=== PATIENT | male | born 1950 | race African-American/Black ===

== ENCOUNTER 2016-09-16 11:36 | Emergency (ER) | payer SELFPAY ==
[~2016-09-16] VITALS: Ht 180.3 cm; Wt 72.6 kg
[2016-09-16] MEDS ORDERED: Morphine Sulfate 4mg/ml Inj IVP ONE (12:15)
--- NOTE | 2016-09-16 12:49 | Diagnostic Imaging Report ---
Indications: Fall, right knee injury, pain and swelling Technique: 3 views right knee Findings: Comparison: None There is a comminuted fracture of the proximal aspect of the tibia with 3 main and one or more smaller fracture fragments.. The main lateral proximal fragment demonstrates complete bone width lateral displacement relative to the distal fragment, complete dislocation from the lateral femoral condyle, and articulates with the proximal fibula. The main medial proximal fragment demonstrates partial bone width medial displacement relative to the distal fragment and continues to articulate with the medial femoral condyle. The fracture cleft between lateral and medial proximal fragments measures up to 15 mm in width. The suprapatellar bursa is markedly distended and increased attenuation of fat fluid level. Scattered arterial mural calcifications are present. IMPRESSION: Comminuted, displaced fracture of the proximal tibia, intra-articular, with partial dislocation of the knee joint Large suprapatellar lipohemarthrosis Arteriosclerosis
[2016-09-16 13:16] LABS: MEAN CORPUSCULAR HEMOGLOBIN 33.9 PG (27.0-31.0); MEAN CORPUSCULAR HGB CONC 34.8 G/DL (32.0-36.0); MEAN CORPUSCULAR VOLUME 97 FL (80-99); MEAN PLATELET VOLUME 6.4 FL (6.5-10.1); PLATELET COUNT 382 K/UL (150-450); RED CELL DISTRIBUTION WIDTH 11.3 % (11.6-14.8); WHITE BLOOD COUNT 18.7 K/UL (4.8-10.8)
[2016-09-16 13:27] LABS: ALANINE AMINOTRANSFERASE 35 U/L (3-41); ALBUMIN/GLOBULIN RATIO 0.5 (1.0-2.7); ANION GAP 18 (5-15); ASPARTATE AMINO TRANSFERASE 88 U/L (5-40); CALCIUM 9.8 mg/dL (8.6-10.2); CARBON DIOXIDE 24 mEQ/L (20-30); CHLORIDE 92 mEQ/L (98-107); CREATININE 1.1 mg/dL (0.7-1.2); GLOMERULAR FILTRATION RATE > 60 mL/min (>60); HEMOLYSIS 9; POTASSIUM 4.5 mEQ/L (3.4-4.9); SODIUM 134 mEQ/L (135-145); TOTAL PROTEIN 9.7 g/dL (6.6-8.7)
[2016-09-16 13:28] LABS: TROPONIN I < 0.30 ng/mL (<=0.30)
[2016-09-16 13:37] LABS: CKMB 7.9 ng/mL (< 6.7)
[2016-09-16 13:47] LABS: BILIRUBIN,DIRECT 0.4 mg/dL (0.1-0.3)
[2016-09-16 13:49] LABS: ANISOCYTOSIS 1+; BAND NEUTROPHILS % (MANUAL) 0 % (0-8); BASOPHILS % (MANUAL) 0 % (0-2); EOSINOPHILS % (MANUAL) 0 % (0-3); LYMPHOCYTES % (MANUAL) 9 % (20-45); NEUTROPHILS % (MANUAL) 79 % (45-75); PLATELET ESTIMATE ADEQUATE; PLATELET MORPHOLOGY NORMAL; TOTAL CELLS COUNTED 100
--- NOTE | 2016-09-16 14:40 | Diagnostic Imaging Report ---
APPROVED REPORT CPT Code: 13049 Present Symptoms Comments: Right leg swelling and pain RIGHT LEG: Venous imaging reveals a patent deep venous system. There is no evidence of thrombus within the femoral, popliteal or tibial segments. The greater saphenous vein is also within normal limits. Doppler indicates normal spontaneous flow within these segments. Incidental findings: Cystic, fluid filled structure noted around the anterior right knee area, measuring (6.6cm x 2.2 cm), and also mid calf area, measuring, (3.1 cm x 1.5cm).
--- NOTE | 2016-09-16 16:35 | Emergency Room Report ---
History of Present Illness General Chief Complaint: Lower Extremity Injury Source: Patient, EMS Present Illness HPI 66-year-old male presents ED complaining of right knee pain. States he had a mechanical trip and fall a few days ago down the stairs. Denies hitting his head or LOC. Complains of pain to his right knee. Unable to bear weight. 10 out of 10. Throbbing. No swelling right leg. No other aggravating or relieving factors. Denies any other associated symptoms Allergies: Coded Allergies: No Known Allergies (Unverified , 09/16/16) Patient History Past Medical History: none Past Surgical History: none Pertinent Family History: none Social History: Denies: alcohol use, drug use, smoking Immunizations: UTD Reviewed Nursing Documentation: PMH: Agreed, PSxH: Agreed Nursing Documentation-PMH Past Medical History: No Stated History Review of Systems All Other Systems: negative except mentioned in HPI Physical Exam Vital Signs Date Time Temp Pulse Resp B/P Pulse Ox O2 Delivery O2 Flow Rate FiO2 09/16/16 11:31 99.0 120 16 160/104 100 Room Air Sp02 EP Interpretation: reviewed, normal General Appearance: alert, GCS 15, non-toxic, mild distress Head: normocephalic Eyes: bilateral eye PERRL, bilateral eye normal inspection ENT: normal ENT inspection Neck: normal inspection Respiratory: chest non-tender, lungs clear, normal breath sounds, speaking full sentences Cardiovascular #1: regular rate, rhythm, no edema Gastrointestinal: normal bowel sounds, non tender, soft, non-distended, no guarding, no rebound Rectal: deferred Genitourinary: no CVA tenderness Musculoskeletal: swelling - R knee to Rtibfib, tender - R knee Neurologic: alert, oriented x3, responsive, motor strength/tone normal, sensory intact, speech normal Psychiatric: normal inspection Skin: normal inspection Lymphatic: normal inspection Procedures Splinting Splinting : Consent: Verbal Hand-Made Type: plaster Splint: posterior long Pre-Proc Neuro Vasc Exam: normal Post-Proc Neuro Vasc Exam: normal Patient Tolerated: Well Complications: None Medical Decision Making Diagnostic Impression: Primary Impression: Tibia fracture Qualified Codes: S82.101A - Unspecified fracture of upper end of right tibia, initial encounter for closed fracture Additional Impression: Fall down stairs Qualified Codes: W10.8XXA - Fall (on) (from) other stairs and steps, initial encounter ER Course Hospital Course 66-year-old male presents ED complaining of right knee pain and swelling status post tripping fall downstairs Differential diagnoses include: fracture, dislocation, contusion, DVT Clinical course Patient placed on stretcher. After initial history and physical I ordered labs , pain medication and x-rays of right knee, Doppler study Labs reviewed-no leukocytosis noted, electrolytes okay, hemoglobin/hematocrit okay, CK > 2000 Doppler US -no DVT Xray shows comminuated fracture of proximal tibia, intraarticular, with partial dislocation of knee joint I discussed case with orthopedics here. Please that patient requires higher level of care with admission to trauma service. Patient placed in posterior splint. Given IV fluids. Patient will be transferred at [facility]. I feel this is a highly complex case requiring extensive working including EKG/Rhythm strip, Xray/CT/US, Blood/urine lab work, repeat exams while in ED, and administration of strong opiates/narcotics for pain control, admission to hospital or close patient follow up. Diagnosis - tibia fracture, fall down stairs Transferred in serious condition Labs Test 09/16/16 12:41 White Blood Count 18.7 K/UL (4.8-10.8) Red Blood Count 3.30 M/UL (4.70-6.10) Hemoglobin 11.2 G/DL (14.2-18.0) Hematocrit 32.2 % (42.0-52.0) Mean Corpuscular Volume 97 FL (80-99) Mean Corpuscular Hemoglobin 33.9 PG (27.0-31.0) Mean Corpuscular Hemoglobin Concent 34.8 G/DL (32.0-36.0) Red Cell Distribution Width 11.3 % (11.6-14.8) Platelet Count 382 K/UL (150-450) Mean Platelet Volume 6.4 FL (6.5-10.1) Neutrophils (%) (Auto) % (45.0-75.0) Lymphocytes (%) (Auto) % (20.0-45.0) Monocytes (%) (Auto) % (1.0-10.0) Eosinophils (%) (Auto) % (0.0-3.0) Basophils (%) (Auto) % (0.0-2.0) Differential Total Cells Counted 100 Neutrophils % (Manual) 79 % (45-75) Lymphocytes % (Manual) 9 % (20-45) Monocytes % (Manual) 12 % (1-10) Eosinophils % (Manual) 0 % (0-3) Basophils % (Manual) 0 % (0-2) Band Neutrophils 0 % (0-8) Platelet Estimate Adequate Platelet Morphology Normal Anisocytosis 1+ Sodium Level 134 mEQ/L (135-145) Potassium Level 4.5 mEQ/L (3.4-4.9) Chloride Level 92 mEQ/L (98-107) Carbon Dioxide Level 24 mEQ/L (20-30) Anion Gap 18 (5-15) Blood Urea Nitrogen 39 mg/dL (7-23) Creatinine 1.1 mg/dL (0.7-1.2) Estimat Glomerular Filtration Rate > 60 mL/min (>60) Glucose Level 123 mg/dL (74-106) Calcium Level 9.8 mg/dL (8.6-10.2) Total Bilirubin 1.2 mg/dL (0.0-1.2) Direct Bilirubin 0.4 mg/dL (0.1-0.3) Aspartate Amino Transf (AST/SGOT) 88 U/L (5-40) Alanine Aminotransferase (ALT/SGPT) 35 U/L (3-41) Alkaline Phosphatase 74 U/L (40-129) Total Creatine Kinase 2063 U/L (38-174) Creatine Kinase MB 7.9 ng/mL (< 6.7) Creatine Kinase MB Relative Index 0.3 Troponin I < 0.30 ng/mL (<=0.30) Total Protein 9.7 g/dL (6.6-8.7) Albumin 3.5 g/dL (3.5-5.2) Globulin 6.2 g/dL Albumin/Globulin Ratio 0.5 (1.0-2.7) Other X-Ray Diagnostic Results Other X-Ray Diagnostic Results : X-Ray Ordered: R knee EP Interpretation: No Number of Views: 3 Other Impression comminuted displaced fracture of proximal tibia, intra-articular with partial dislocation of knee joint CT/MRI/US Diagnostic Results CT/MRI/US Diagnostic Results : Imaging Test Ordered: doppler US Impression no evidence of DVT Last Vital Signs Date Time Temp Pulse Resp B/P Pulse Ox O2 Delivery O2 Flow Rate FiO2 09/16/16 11:31 99.0 120 16 160/104 100 Room Air Status: improved Disposition: XFER SHT-TRM HOSP Condition: Serious Referrals: NOT CHOSEN IPA/,REFERRING (PCP) SURAJ LEHMAN M.D. Sep 16, 2016 16:35
[2016-09-16 16:54] VITALS: BP 174/62
[2016-09-16 19:05] VITALS: BP 162/87
[2016-09-16 19:48] VITALS: BP 162/87
== END 2016-09-16 20:02 | disposition short-term general hospital (02) ==
LOC: EDBD 11:36 → EMR 12:47
DX: S82.101A Unspecified fracture of upper end of right tibia, initial encounter for closed fracture (principal); W10.9XXA Fall (on) (from) unspecified stairs and steps, initial encounter; Y93.9 Activity, unspecified; Y92.9 Unspecified place or not applicable
CPT/HCPCS: 29505; 36415; 73562; 80053; 82248; 82550; 82553; 84484; 85007; 85025; 93970; 96360; 96374; 99285; J2270